=== PATIENT | male | born 1995 | race Caucasian/White ===

== ENCOUNTER → 2017-06-02 | Outpatient (CLI) | payer OTHER | END | disposition home or self-care (01) | LOC: LABPV 12:50 | PROVIDERS: ATTEND Internal Medicine Cardiovascular Disease | DX: I20.9 Angina pectoris, unspecified (principal); I42.5 Other restrictive cardiomyopathy; R94.31 Abnormal electrocardiogram [ECG] [EKG] | CPT/HCPCS: 71020 ==